=== PATIENT | female | born 1995 | race Caucasian/White ===

== ENCOUNTER 2018-04-14 18:23 | Emergency (ER) | payer OTHER ==
[~2018-04-14] VITALS: Ht 167.6 cm; Wt 62.6 kg
[2018-04-14 18:25] VITALS: BP 129/83
--- NOTE | 2018-04-14 18:30 | NUR ---
PATIENT PRESENTS TO ED WITH C/O STIFFNESS AND NUMBNESS TO BLE . PT STATES SHE WAS DRIVING TO SEE HER SISTER WHEN SHE SUDDENLY FELT NUMB AND STIFF IN HER LEG. PATIENT STATES SHE WAS NERVOUS THE ENTIRE DAY . DENIES N/V/D; SKIN IS PINK/WARM/DRY; AAOX4 WITH EVEN AND STEADY GAIT; LUNGS CLEAR BL; HR EVEN AND REGULAR; PT DENIES ANY FEVER, CP, SOB, OR COUGH AT THIS TIME; PATIENT STATES PAIN OF 0/10 AT THIS TIME; VSS; PATIENT POSITIONED FOR COMFORT; HOB ELEVATED; BEDRAILS UP X2; BED DOWN. ER MD MADE AWARE OF PT STATUS.
--- NOTE | 2018-04-14 19:16 | NUR ---
Pt report given to FRANCISCA REDD. Transfer of care at this time.
--- NOTE | 2018-04-14 20:22 | NUR ---
Patient discharged with v/s stable. Written and verbal after care instructions given and explained. Patient verbalized understanding. Ambulatory with steady gait. All questions addressed prior to discharge. Advised to follow up with PMD.
[2018-04-14 20:31] VITALS: BP 120/81
== END 2018-04-14 20:22 | disposition home or self-care (01) ==
LOC: MED 18:23
DX: F41.0 Panic disorder [episodic paroxysmal anxiety] (principal); Z88.0 Allergy status to penicillin
CPT/HCPCS: 81025; 99284